=== PATIENT | female | born 1935 | race Caucasian/White ===

== ENCOUNTER 2020-04-28 17:04 | Emergency (ER) | payer OTHER, SELFPAY ==
--- NOTE | ~2020-04-28 | XR_ITS ---
EXAMINATION: XR hip LT min 2V EXAM DATE: 04/28/2020 18:06 INDICATION: Left hip pain. No known trauma. TECHNIQUE: Left hip frontal, crosstable lateral and 'frog-leg' projections for interpretation. Fronta l projection pelvis. There is no prior study for comparison. FINDINGS: Smooth left hip femoral head contour, no radiographic evidence of avascular necrosis. Ther e is moderate primary osteoarthritis. There are no acute fractures or dislocations identified. There is no subcutaneous gas. The soft tissue is unremarkable. There are no radiopaque foreign bodies. IMPRESSION: Moderate left hip osteoarthritis. Reviewed, dictated and finalized at location A.
[2020-04-28 17:22] VITALS: BP 171/106; PULSE 98; RESP 18; TEMP 37.2; O2SAT 98
--- NOTE | 2020-04-28 17:25 | ED.GENADULT ---
HPI - General Adult General Chief complaint: Extremity Problem,Nontraumatic Stated complaint: L/hip pain Time Seen by Provider: 04/28/20 17:25 Source: patient and RN notes reviewed Mode of arrival: ambulatory Limitations: no limitations History of Present Illness HPI narrative: 85-year-old female presents with complaints of LT hip pain for the past 3 days. Naproxen 220mg on 04/26, Ibuprofen 200mg and Tylenol ES 500mg (last on 04/27/20@22:00) with little to no relief. No treatment today. History of Compression fracture and Vertebroplasty. Denies new injuries or falls. Denies radiating pain, numbness, or tingling. Denies fever or chills. No upper or lower extremity weakness. Exacerbating factors consist of prolong standing, sitting, and bending. Denies nausea, vomiting, or abdominal pain. Denies problems with urinating or having a bowel movement, LBM 1-2 days. No flank pain or hematuria or dysuria. The patient reports she was recently diagnosed (04/11/20) with COVID-19. The patient reports symptoms started on 04/08/20. The patient reports she do not have fever, chills, or weakness. The patient reports she do not have a new or worsening cough or shortness of breath. Denies chest pain. The patient reports she do not have any rhinorrhea, congestion, sore throat, loss of taste, and diarrhea. Tolerating po intake well. Denies recent traveling. Denies concerns for COVID-19 or exposures been home with limited outdoor exposure except for essential household needs and return home. At this time, patient is not suspected of having COVID-19. Some parts of this dictation were generated by voice recognition software and may contain typographical and/or grammatical inaccuracies. Related Data Home Medications Medication Instructions Recorded Confirmed furosemide [Lasix] 20 mg PO DAILY 04/28/20 04/28/20 losartan [Cozaar] 50 mg PO DAILY 04/28/20 04/28/20 simvastatin 20 mg PO DAILY 04/28/20 04/28/20 warfarin [Jantoven] 3 mg PO DAILY 04/28/20 04/28/20 Allergies Allergy/AdvReac Type Severity Reaction Status Date / Time No Known Allergies Allergy Verified 04/28/20 17:27 Review of Systems Review of Systems: Narrative: CONSTITUTIONAL: Denies fever, chills, sweats. EYES: Denies visual changes, redness, discharge. ENT: Denies rhinorrhea, congestion, sore throat, otalgia. CARDIOVASCULAR: Denies chest pain, palpitations, edema. RESPIRATORY: Denies dyspnea, wheezing, cough. GASTROINTESTINAL: Denies abdominal pain, nausea, vomiting, diarrhea. GENITOURINARY: Denies dysuria, hematuria, abnormal discharge. SKIN: Denies rash or itching. MUSCULOSKELETAL: Denies acute back pain or myalgia. Complains of LT hip pain. NEUROLOGIC: Denies numbness or focal weakness. PSYCHIATRIC: Denies anxiety or depression. All systems reviewed & are unremarkable except as noted in HPI and below PMFSH Past Medical History Medical History (Updated 04/29/20 @ 00:00 by [facility]) CHF (congestive heart failure) Chronic a-fib Compression fracture Hypercholesteremia Hypertension Surgical History Surgical History (Updated 04/28/20 @ 17:47 by ARACELY Thacker) History of knee surgery Bilateral History of vertebroplasty Family History Family History (Updated 04/28/20 @ 17:47 by ARACELY Thacker) Other Hypertension Social History Social History (Updated 05/01/20 @ 00:53 by ARACELY Thacker) Smoking status: Never smoker Substance use: never Living arrangements: with family Occupation/Education: retired Gender identity (if verbalized by the patient): Female Sexual Orientation (if Verbalized by the Patient): Straight or Heterosexual Exam Narrative: Exam Narrative: GENERAL: This is a well-nourished, well-developed patient, in no apparent distress. Talks in full sentences without deficits and ambulates with slow steady gait once she gathers her balance from sitting without dyspnea. HEAD: normocephalic
[2020-04-28] MEDS: KETOROLAC (*BKC) 60 MG/2 ML VIAL IM (17:44)
[2020-04-28 18:36] VITALS: BP 146/80; PULSE 84; RESP 20; O2SAT 97
== END 2020-04-28 18:37 | disposition home or self-care (01) ==
PROVIDERS: Emergency Provider Nurse Practitioner Family
DX: M54.5 Low back pain (principal); M16.12 Unilateral primary osteoarthritis, left hip; I11.0 Hypertensive heart disease with heart failure; I50.9 Heart failure, unspecified; I48.91 Unspecified atrial fibrillation; E78.00 Pure hypercholesterolemia, unspecified
CPT/HCPCS: 73502; 96372; 99203; G0463; J1885

== ENCOUNTER 2022-09-25 10:41 | Emergency (ER) | payer OTHER, SELFPAY ==
--- NOTE | ~2022-09-25 | XR_ITS ---
Left Shoulder Technique: AP and scapular Y views were obtained. Clinical History: Pain and swelling Findings: No fracture identified. Probable os acromiale. Humeral head is high riding, compatible with underlying rotator cuff tear. There is mild acetabular ideation of the acromion. There is advanced A C joint degenerative change. There is moderate to advanced glenohumeral joint degenerative change. Th ere is probably mild calcified debris at the expected region of the rotator cuff. Soft tissues are un remarkable. Impression: High riding humeral head is consistent with underlying complete rotator cuff tear. Degenerative changes, as detailed above. No acute fracture or dislocation. Reviewed, dictated and finalized at location M. Impression: High riding humeral head is consistent with underlying complete rotator cuff te ar. Degenerative changes, as detailed above. No acute fracture or dislocation.
[2022-09-25 11:07] VITALS: BP 111/55; PULSE 88; RESP 18; TEMP 36.3; O2SAT 99
[2022-09-25] MEDS: KETOROLAC 30 MG/ML VIAL (*BKC) 15 MG IM (11:31)
--- NOTE | 2022-09-25 13:50 | ED.EXTPRO ---
HPI - Extremity Problem General Chief complaint: Extremity Problem,Nontraumatic Stated complaint: lt shoulder pain Time Seen by Provider: 09/25/22 11:15 Source: patient Mode of arrival: ambulatory Limitations: no limitations History of Present Illness HPI Narrative: 87 yo F presents with her daughter with c/o pain and swelling not L shoulder. Daughter denies injury. States that pt has arthritis to both shoulders and has little movement to them at baseline. Has had increased pain to L shoulder for past several days. Woke up this AM with swelling to L shoulder. Daughter states that pt sleeps on L side. All systems reviewed and negative except as noted above. Related Data Home Medications Medication Instructions Recorded Confirmed furosemide 20 mg tablet (Lasix) 20 mg PO DAILY 04/28/20 09/25/22 losartan 50 mg tablet (Cozaar) 50 mg PO DAILY 04/28/20 09/25/22 simvastatin 20 mg tablet 20 mg PO DAILY 04/28/20 09/25/22 warfarin 3 mg tablet (Jantoven) 3 mg PO DAILY 04/28/20 09/25/22 allopurinol 100 mg tablet 200 mg PO DAILY 09/25/22 09/25/22 Allergies Allergy/AdvReac Type Severity Reaction Status Date / Time No Known Allergies Allergy Verified 09/25/22 11:05 Review of Systems Review of Systems: CONSTITUTIONAL: Denies fever, chills, or sweats. EYES: Denies visual changes, redness, or discharge. ENT: Denies rhinorrhea, congestion, sore throat, or otalgia. CARDIOVASCULAR: Denies chest pain, palpitations, or edema. RESPIRATORY: Denies cough or dyspnea. GASTROINTESTINAL: Denies abdominal pain, nausea, vomiting, or diarrhea. GENITOURINARY: Denies dysuria or hematuria. SKIN: Denies rash or itching. MUSCULOSKELETAL: Reports pain and swelling to left shoulder. NEUROLOGIC: Denies headache, numbness, or weakness. PSYCHIATRIC: Denies anxiety or depression. All other systems reviewed are negative, except as documented in HPI. [facility] Past Medical History Medical History (Updated 09/26/22 @ 00:01 by Marcello Tejeda) CHF (congestive heart failure) Chronic a-fib Compression fracture Hypercholesteremia Hypertension Surgical History Surgical History (Updated 04/28/20 @ 17:47 by ARACELY Thacker) History of knee surgery Bilateral History of vertebroplasty Family History Family History (Updated 04/28/20 @ 17:47 by ARACELY Thacker) Other Hypertension Social History Social History (Updated 05/01/20 @ 00:53 by ARACELY Thacker) Smoking status: Never smoker Substance use: never Living arrangements: with family Occupation/Education: retired Gender identity (if verbalized by the patient): Female Sexual Orientation (if Verbalized by the Patient): Straight or Heterosexual Comments At time of signature, agree with nursing past medical, surgical, social and family history. There is no relevant family history pertinent to the presenting complaint. Exam Narrative: GENERAL: This is a well-nourished, well-developed patient, in no apparent distress. HEAD: normocephalic, atraumatic. EYES: PERRL. Sclera clear/white. Vision is grossly intact. EARS: External ears normal NOSE: External nose normal NECK: Neck supple, non-tender without lymphadenopathy, masses or thyromegaly. CARDIOVASCULAR: Regular rate and rhythm without murmurs, gallops, or rubs. RESPIRATORY: Clear to auscultation. Breath sounds equal bilaterally. No wheezes, rales, or rhonchi. SKIN: warm, Dry, intact with no suspicious lesions or rash, good texture and turgor. NEURO: awake, alert, and oriented to person, place and time. There were no obvious focal neurologic abnormalities. EXTREMITIES: swelling to L shoulder is fluctuant concerning for bursitis. ROM decreased. tender on palpation. no redness or warmth. Course Course Level of Care: Express Care Visit Vital Signs Vital signs: Vital Signs Temperature 36.3 C L 09/25/22 11:07 Pulse Rate 88 09/25/22 11:07 Respiratory Rate 18 09/25/22 11:07 Blood Pressure 11
== END 2022-09-25 11:55 | disposition home or self-care (01) ==
PROVIDERS: Emergency Provider Nurse Practitioner Family
DX: M75.52 Bursitis of left shoulder (principal); E78.00 Pure hypercholesterolemia, unspecified; I48.20 Chronic atrial fibrillation, unspecified; I11.0 Hypertensive heart disease with heart failure; I50.9 Heart failure, unspecified
CPT/HCPCS: 73030; 96372; 99213; A4565; G0463; J1885

== ENCOUNTER 2022-10-29 17:55 | Emergency (ER) | payer OTHER, SELFPAY ==
--- NOTE | ~2022-10-29 | XR_ITS ---
XR foot LT min 3V 10/29/2022 18:38 Indication: Left foot pain Procedure: 4 views left foot Comparison: No prior studies for comparison. Findings: There is an oblique mildly displaced distal fibular fracture. Osteopenia. There is hallux v algus. There is mild-moderate polyarticular osteoarthritis. Osteopenia. No definite fracture/dislocat ion of the Lisfranc joint. No foreign bodies. Impression: 1: Oblique mildly displaced distal fibular fracture. Reviewed, dictated and finalized at location A. Impression: 1: Oblique mildly displaced distal fibular fracture.
--- NOTE | ~2022-10-29 | XR_ITS ---
XR ankle LT min 3V 10/29/2022 18:38 Indication: Left ankle pain and swelling Procedure: 4 views left ankle Comparison: No prior studies for comparison. Findings: There is an oblique distal fibular fracture with lateral displacement. Osteopenia. Ankle mo rtise intact. Moderate lateral soft tissue swelling. There is atherosclerosis. There is extensive ath erosclerosis. Impression: 1: Mildly displaced oblique distal fibular fracture with adjacent soft tissue swelling. Reviewed, dictated and finalized at location A. Impression: 1: Mildly displaced oblique distal fibular fracture with adjacent soft tissue s welling.
[2022-10-29 18:10] VITALS: BP 145/77; PULSE 89; RESP 20; TEMP 37; O2SAT 97
--- NOTE | 2022-10-29 19:00 | ED.LOWEXIN ---
HPI - Extremity Injury (Lower) General Chief Complaint: Extremity Injury, Lower Stated Complaint: lt ankle pain and swelling Time Seen by Provider: 10/29/22 18:00 Source: patient and family (daughter ) Mode of arrival: wheelchair Limitations: dementia History of Present Illness HPI Narrative: 87-year-old female presents to Express Care accompanied by her daughter for complaints of pain and swelling to her left lateral ankle for the past 1-2 days. Patient has history of dementia. Daughter reports that patient spent time at her brother's home and brother reported that patient possibly twisted her left ankle when walking down steps. Daughter reports that she then noticed that patient was not wanting to bear much weight on her left ankle yesterday. She reports the patient took [id number] naproxen as well as applied ice with little relief. Patient is usually ambulatory but is unable to bear weight on left ankle at this time MD complaint: ankle injury Onset (ago): day(s) (2) Injury: Left: ankle Other symptoms: none Treatments prior to arrival: cold therapy and NSAIDS Related Data Home Medications Medication Instructions Recorded Confirmed furosemide 20 mg tablet (Lasix) 20 mg PO DAILY 04/28/20 10/29/22 losartan 50 mg tablet (Cozaar) 50 mg PO DAILY 04/28/20 10/29/22 simvastatin 20 mg tablet 20 mg PO DAILY 04/28/20 10/29/22 warfarin 3 mg tablet (Jantoven) 3 mg PO DAILY 04/28/20 10/29/22 allopurinol 100 mg tablet 200 mg PO DAILY 09/25/22 10/29/22 Allergies Allergy/AdvReac Type Severity Reaction Status Date / Time No Known Allergies Allergy Verified 09/25/22 11:05 Review of Systems Constitutional: Constitutional: Denies chills, Denies fatigue, Denies fever(s) and Denies weakness ENT: Denies vertigo and Denies dizziness Gastrointestinal: Gastrointestinal: Denies diarrhea, Denies nausea and Denies vomiting Musculoskeletal: Comments: Left lateral ankle pain and swelling Integumentary/Breasts: Skin/Breast: Denies pruritus, Denies rash and Denies skin ulcer PMFSH Past Medical History Medical History CHF (congestive heart failure) Chronic a-fib Compression fracture Hypercholesteremia Hypertension Surgical History Surgical History History of knee surgery Bilateral History of vertebroplasty Family History Family History Other Hypertension Social History Social History Smoking status: Never smoker Substance use: never Living arrangements: with family Occupation/Education: retired Gender identity (if verbalized by the patient): Female Sexual Orientation (if Verbalized by the Patient): Straight or Heterosexual Comments At time of signature, I agree with nursing past medical, surgical, social and family history. There is no relevant family history pertinent to the presenting complaint. Exam Const: General: healthy appearing and no acute distress Nutritional Appearance: well nourished Limitations: other limitations (History of dementia) Neck: Neck: normal visual inspection Resp: Effort & Inspection: normal respiratory effort and not labored Auscultation: clear to auscultation bilaterally, no crackles, no rales, no rhonchi and no wheezes Cardio: Rate: regular rate Rhythm: regular rhythm Heart sounds: no murmurs Skin: General skin exam: normal color Rashes: no rashes Neuro: General: moves all extremities and no meningeal signs Other: History of dementia Extrem: General: edema (1+ swelling noted to lateral aspect of left ankle) left Other: Mild swelling and bruising noted to the lateral aspect of left ankle. Pulses are within normal limits. No erythema or open wound noted. Psych: Mental Status: mental status grossly normal Affect: normal affect Attitude: coop
== END 2022-10-29 19:35 | disposition home or self-care (01) ==
PROVIDERS: Emergency Provider Nurse Practitioner Family
DX: S82.832A Other fracture of upper and lower end of left fibula, initial encounter for closed fracture (principal); X58.XXXA Exposure to other specified factors, initial encounter; F03.90 Unspecified dementia, unspecified severity, without behavioral disturbance, psychotic disturbance, mood disturbance, and anxiety; I48.91 Unspecified atrial fibrillation; E78.00 Pure hypercholesterolemia, unspecified; I11.0 Hypertensive heart disease with heart failure; I50.9 Heart failure, unspecified
CPT/HCPCS: 29515; 73610; 73630; 99214; G0463

== ENCOUNTER 2023-10-07 11:41 | Outpatient (CLI) | payer OTHER, SELFPAY ==
--- NOTE | ~2023-10-07 | XR_ITS ---
XR chest 2V 10/07/2023 12:14 Indication: Dyspnea Procedure: 2 view chest Comparison: No prior studies for comparison. Findings: Prominent right cardiophrenic angle fat pad. Cardiomegaly. No focal air space disease, pulm onary edema, pleural effusion or suspected pneumothorax. Advanced degenerative changes of the shoulde rs. Impression: 1: No acute cardiopulmonary disease. Reviewed, dictated and finalized at location B. Impression: 1: No acute cardiopulmonary disease.
== END 2023-10-07 11:42 ==
DX: I50.32 Chronic diastolic (congestive) heart failure (principal)
CPT/HCPCS: 71046